=== PATIENT | male | born 1995 | race American Indian/Alaskan Native ===

== ENCOUNTER 2018-08-01 20:54 | Emergency (ER) | payer SELFPAY ==
[2018-08-01 21:25] VITALS: BP 129/97
--- NOTE | 2018-08-01 21:25 | Emergency Department Report ---
Blank Doc - Documentation Documentation: This is a 22-year-old male that stated had low sugar last week. Patient tate valentino denies any hypo or hyperglyemia. Patient stated he wants to be "checked out". Patient then wake up this morning with bumps in penis. Denies any urianry symptoms or penile discharge. This initial assessment diagnostic orders/clinical plan/treatment(s) is/are subject to change based on patient's health status, clinical progression and re- assessment by fellow clinical providers in the ED. Further treatment and workup at subsequent clinical providers discretion. Patient/guardians urged not to elope from ED s their condition may be serious if not clinically assessed and managed. Initial orders include: 1-Patient sent to [facility] for further evaluation and treatment
--- NOTE | 2018-08-01 22:17 | Emergency Department Report ---
ED General Adult HPI - General Chief complaint: Weakness Stated complaint: DIABETES Time Seen by Provider: 08/01/18 21:22 Source: patient Mode of arrival: Ambulatory Limitations: No Limitations - History of Present Illness Initial comments: 22-year-old -British male presents to the emergency room reporting he thinks he has diabetes. Patient reports he checked his blood sugar at home and it was 52. Patient states he has a dry mouth and has been more thirsty. Patient reports he does not have much appetite denies any fever chills no nausea no vomiting or abdominal pain. He does report he has a bowel movement 2-3 times a day. He denies any chest pain shortness of breathing. He does report that he has a history of ADD as a child and reports that he can't stay still. Patient is recently relocated from [facility] about a month ago and wanted to get checked out. Patient reports he smokes black and Miles and weed to help calm him down. Severity scale (0 -10): 0 Associated Symptoms: loss of appetite. denies: chest pain, cough, fever/chills, nausea/vomiting, rash, weakness - Related Data Allergies Allergy/AdvReac Type Severity Reaction Status Date / Time No Known Allergies Allergy Unverified 08/01/18 21:04 ED Review of Systems ROS: Stated complaint: DIABETES Other details as noted in HPI Comment: All other systems reviewed and negative Psychiatric: anxiety. denies: auditory hallucinations, visual hallucinations, homicidal thoughts, suicidal thoughts ED Past Medical Hx - Past Medical History Previous Medical History?: No - Surgical History Past Surgical History?: No - Social History Smoking Status: Never Smoker Substance Use Type: Alcohol, Marijuana ED Physical Exam - General Limitations: No Limitations General appearance: alert, in no apparent distress - Head Head exam: Present: atraumatic, normocephalic - Eye Eye exam: Present: normal appearance - ENT ENT exam: Present: mucous membranes moist - Respiratory Respiratory exam: Present: normal lung sounds bilaterally. Absent: respiratory distress - Cardiovascular Cardiovascular Exam: Present: regular rate, normal rhythm. Absent: systolic murmur, diastolic murmur, rubs, gallop - GI/Abdominal GI/Abdominal exam: Present: soft, normal bowel sounds - Neurological Exam Neurological exam: Present: alert, oriented X3 - Psychiatric Psychiatric exam: Present: normal affect, normal mood - Skin Skin exam: Present: warm, dry, intact, normal color. Absent: rash ED Course Vital Signs 08/01/18 21:23 Temperature 98 F Pulse Rate 93 H Respiratory 18 Rate Blood Pressure 129/97 O2 Sat by Pulse 100 Oximetry ED Medical Decision Making - Medical Decision Making Patient has been evaluated by this provider in fast track. Patient education on following up with [facility] for evaluation of his ADD. Discussed the patient he needs to follow up with a primary care clinic for a full physical. Patient verbalizes understanding. Critical care attestation.: If time is entered above; I have spent that time in minutes in the direct care of this critically ill patient, excluding procedure time. ED Disposition Clinical Impression: General medical exam Disposition: DC-01 TO HOME OR SELFCARE Is pt being admited?: No Does the pt Need Aspirin: No Condition: Stable Additional Instructions: Please follow up with [facility] for further evaluation. Referrals: [facility] [Outside] - 3-5 Days [facility] [Outside] - 3-[address] [facility] [Outside] - 3-5 Days [facility] [Provider Group] - 3-5 Days
== END 2018-08-01 22:35 | disposition home or self-care (01) ==
LOC: ED 20:54
DX: R63.0 Anorexia (principal); Z00.00 Encounter for general adult medical examination without abnormal findings; F12.10 Cannabis abuse, uncomplicated
CPT/HCPCS: 82962; 99283